=== PATIENT | male | born 1990 ===

== ENCOUNTER 2023-06-14 08:59 | Outpatient (CLI) | payer OTHER, SELFPAY ==
--- NOTE | 2023-06-24 21:18 | WPDHOMESLEEP ---
Sleep Study - Home Unattended Date of Study: 06/14/23 Ordering Provider: Noé Mederos, Interpreting Provider: Yelena Tan, DO Home Sleep Study Type: Watch PAT Height: 1.83 m Weight: 115.666 kg Body Mass Index: 34.5 Neck Circumference (inches): 17.5 [place]: 16 Reason for Sleep Study Loud snoring, daytime hypersomnia Sleep History The patient is a 32-year-old male with excessive daytime sleepiness that had a sleep study ordered by his bottom turner for evaluation of sleep apnea. The patient frequently awakens from sleep short of breath. He rarely awakens at night with heartburn, belching or cough. He constantly snores loudly enough that others complain. He occasionally has trouble sleeping when he has a cold. He frequently wakes up gasping for air throughout the night. He frequently has breathing problems at night observed by himself or others. He occasionally sweats excessively at night. He occasionally has heart palpitations or irregular heartbeats during the night. He occasionally falls asleep during the day but never while driving. He denies cataplexy. He occasionally has trouble at school or work due to sleepiness. He rarely feels unable to move while waking up or falling asleep. He rarely experiences vivid dreamlike scenes upon awakening or falling asleep. He denies feeling afraid of going to sleep. He denies having nightmares. He rarely remembers his dreams. He frequently has thoughts racing through his mind. He rarely feels sad or depressed. He frequently has anxiety. He frequently has muscular tension. He frequently notices parts of his body jerk. He frequently kicks during the night. He frequently has crawling and aching feelings in his legs and occasionally has leg pain during the night. He frequently grinds his teeth during sleep and constantly awakens with morning jaw pain. He is occasionally bothered by pain during the day and rarely awakened by pain during the night. He occasionally wakes up feeling stiff in the morning. He occasionally wakes up with sore or achy muscles. He frequently wakes up with pain in the neck, spine and other joints. He goes to bed at 10:00 p.m. on weekdays and at 11:00 p.m. on the weekends. It takes him 5 minutes to fall asleep. He wakes up 7-10 times throughout the night to adjust his position or due to nocturnal gasping. He wakes up between 5-6 a.m. on weekdays and between 7-8 a.m. on the weekends. He typically gets 7 hours of sleep per night. He will stay in bed for 10 minutes after waking up in the morning. He currently lives with his and 3-year-old daughter. He denies consuming any caffeinated beverages within 2 hours of bedtime. He denies engaging in physical exercise before bedtime. He will watch television before falling asleep. He will take naps in the afternoon and they are refreshing. He consumes 1-2 caffeinated beverages per day. He denies tobacco, alcohol and recreational drug use. Sleep Procedure The sleep study was completed using LOYAL3T a technically adequate device with seven channels: peripheral arterial tone, actigraphy, body position, snore, respiratory movement, pulse oximetry, sleep staging, and heart rate. Prior to using the device, the patient received verbal and written instructions for its application and was provided with the help desk phone number for additional telephonic instruction with 24-hour availability of qualified personnel to answer questions.? The study was scored using CMS guidelines.?? Sleep Architecture The total recording time is 8 hrs, 7 min. The total sleep time is 7 hrs, 11 min. Sleep latency is 21 minutes. REM latency is 48 minutes. The patient had 8 episodes of waking. Sleep architecture shows 24.2% deep sleep, 46.4% light sleep, and (as % Total Sleep Time) showed NREM (Light 46.4%; Deep 24.2%), and a 29.3% stage REM. The patient spent 57.2% of total sleep time in the supine position. Sleep efficiency was 88
[2023-06-24 21:28] VITALS: BMI 34.5
== END 2023-06-15 07:30 | disposition home or self-care (01) ==
LOC: ANHCSM 09:01
PROVIDERS: Visit Provider Internal Medicine Pulmonary Disease
DX: G47.33 Obstructive sleep apnea (adult) (pediatric) (principal); G47.19 Other hypersomnia
CPT/HCPCS: 95800